=== PATIENT | male | born 1950 | race Caucasian/White ===

== ENCOUNTER 2020-06-26 18:25 | Observation (INO) | payer OTHER, MEDICARE, BC ==
[~2020-06-26] VITALS: Ht 182.9 cm; Wt 90.9 kg
--- NOTE | 2020-06-26 18:55 | NUR ---
Stroke RN on scene [id number]
[2020-06-26] MEDS ORDERED: aspirin 325mg tablet PO ONE (19:00)
[2020-06-26 19:01] LABS: PARTIAL THROMBOPLASTIN TIME 22 SECONDS (22-32)
[2020-06-26 19:04] LABS: ALANINE AMINOTRANSFERASE 49 U/L (12-78); ALBUMIN 4.4 G/DL (3.4-5.0); ALBUMIN/GLOBULIN RATIO 1.4 (1.1-1.5); ALKALINE PHOSPHATASE 161 IU/L (46-116); ANION GAP 9 (8-16); ASPARTATE AMINO TRANSFERASE 29 U/L (10-37); BILIRUBIN,TOTAL 0.5 MG/DL (0.1-1.0); BLOOD UREA NITROGEN 20 MG/DL (7-18); BUN/CREATININE RATIO 15.7 (5.4-32.0); CALCIUM 9.2 MG/DL (8.5-10.1); CHLORIDE 104 MMOL/L (99-107); CREATININE 1.27 MG/DL (0.60-1.10); GLUCOSE 114 MG/DL (70-104); SODIUM 140 MMOL/L (135-145); TOTAL CARBON DIOXIDE 27.5 MMOL/L (24-32); TOTAL PROTEIN 7.5 G/DL (6.4-8.2); eGFR 57 ML/MIN
[2020-06-26 19:05] LABS: POTASSIUM 4.4 MMOL/L (3.5-5.1)
[2020-06-26] MEDS ORDERED: NO HOME MEDS (19:06)
[2020-06-26 19:07] LABS: TROPONIN I < 0.04 NG/ML (0.0-0.05)
[2020-06-26] MEDS ORDERED: ondansetron/PF 4mg/2ml inj IV PRN (19:30)
[2020-06-26] MEDS ORDERED: mag hydrox/Alum hydrox/simeth 30ml oral suspension PO PRN (19:30)
[2020-06-26] MEDS ORDERED: magnesium hydroxide 30ml (MOM) UD suspension PO PRN (19:30)
[2020-06-26] MEDS ORDERED: morphine 2 MG/ML inj. syringe IV PRN ×2 (19:30)
[2020-06-26] MEDS ORDERED: acetaminophen 325mg tablet PO PRN ×2 (19:30)
[2020-06-26] MEDS: dextrose 5%-1/2 normal saline 1,000 ML IV SCH (20:03)
[2020-06-26 20:20] LABS: BASOPHILS % (AUTO) 0.7 % (0-1); EOSINOPHILS # (AUTO) 0.1 X10'3 (0-0.9); EOSINOPHILS % (AUTO) 1.2 % (0-6); HEMATOCRIT 42.4 % (42.0-52.0); HEMOGLOBIN 14.3 g/dl (14.0-17.9); LYMPHOCYTES # (AUTO) 1.1 X10'3 (1.1-4.8); MEAN CORPUSCULAR HEMOGLOBIN 31.2 PG (27.0-31.0); MEAN CORPUSCULAR HGB CONC 33.8 g/dL (33.0-36.5); MEAN CORPUSCULAR VOLUME 92.1 FL (78-98); MEAN PLATELET VOLUME 8.3 FL (7.4-10.4); MONOCYTES # (AUTO) 0.4 X10'3 (0-0.9); MONOCYTES % (AUTO) 6.4 % (2-12); NEUTROPHILS # (AUTO) 4.7 X10'3 (1.8-7.7); NEUTROPHILS % (AUTO) 74.7 % (42-75); PLATELET COUNT 199 X10'3 (140-440); WHITE BLOOD COUNT 6.3 X10'3 (4.5-11.0)
[2020-06-26 22:00] VITALS: BP 155/78
[2020-06-27] MEDS: dextrose 5%-1/2 normal saline 1,000 ML IV SCH ×3 (05:32→22:08)
[2020-06-27 06:00] VITALS: BP 104/60
[2020-06-27 06:02] LABS: BASOPHILS % (AUTO) 0.7 % (0-1); EOSINOPHILS # (AUTO) 0.1 X10'3 (0-0.9); EOSINOPHILS % (AUTO) 1.6 % (0-6); HEMATOCRIT 40.4 % (42.0-52.0); HEMOGLOBIN 13.8 g/dl (14.0-17.9); LYMPHOCYTES # (AUTO) 1.9 X10'3 (1.1-4.8); LYMPHOCYTES % (AUTO) 31.2 % (21-51); MEAN CORPUSCULAR HEMOGLOBIN 31.7 PG (27.0-31.0); MEAN CORPUSCULAR VOLUME 93.1 FL (78-98); MEAN PLATELET VOLUME 7.9 FL (7.4-10.4); MONOCYTES # (AUTO) 0.5 X10'3 (0-0.9); MONOCYTES % (AUTO) 7.9 % (2-12); NEUTROPHILS # (AUTO) 3.5 X10'3 (1.8-7.7); NEUTROPHILS % (AUTO) 58.6 % (42-75); PLATELET COUNT 181 X10'3 (140-440); RED BLOOD COUNT 4.34 X10'6 (4.70-6.10); RED CELL DISTRIBUTION WIDTH 12.8 % (11.5-14.5)
[2020-06-27 06:12] LABS: ALBUMIN 3.3 G/DL (3.4-5.0); ANION GAP 7 (8-16); BLOOD UREA NITROGEN 17 MG/DL (7-18); BUN/CREATININE RATIO 16.5 (5.4-32.0); CALCIUM 8.3 MG/DL (8.5-10.1); CHLORIDE 106 MMOL/L (99-107); CHOL/HDL RATIO 3.7 (0.00-4.99); CHOLESTEROL 163 MG/DL (0-200); CREATININE 1.03 MG/DL (0.60-1.10); GLUCOSE 137 MG/DL (70-104); HDL CHOLESTEROL 44 MG/DL (35-60); LDL CHOLESTEROL 115 MG/DL (50-100); POTASSIUM 3.5 MMOL/L (3.5-5.1); SODIUM 139 MMOL/L (135-145); TOTAL CARBON DIOXIDE 26.4 MMOL/L (24-32); TRIGLYCERIDES 56 MG/DL (20-135); eGFR 72 ML/MIN
--- NOTE | 2020-06-27 06:21 | NUR ---
Problems reprioritized. Patient report given, questions answered & plan of care reviewed with YOSHI Marquez.
[2020-06-27 09:46] VITALS: BP 126/68
[2020-06-27] MEDS ORDERED: potassium Cl 20 mEq SR tablet PO PRN ×2 (10:45)
[2020-06-27] MEDS ORDERED: potassium CL 10mEq/100ml bag 100 ML IV PRN (10:45)
[2020-06-27] MEDS ORDERED: magnesium Cl slow-release 64mg tablet PO PRN (10:45)
[2020-06-27] MEDS ORDERED: magnesium 4gm in 100ml NS 100 ML IV PRN (10:45)
--- NOTE | 2020-06-27 11:16 | NUR ---
PAGER ID: [phone] MESSAGE: [phone] [facility] [place] [phone]
[2020-06-27] MEDS ORDERED: LORazepam 2 mg/ml vial IV ONE (11:25)
--- NOTE | 2020-06-27 11:34 | NUR ---
sent page to [facility] ([facility]) for pt
[2020-06-27 18:00] VITALS: BP 140/73
--- NOTE | 2020-06-27 18:36 | NUR ---
Patient in room ORTHO 4023. I have received report from Alma BELLE and had the opportunity to ask questions and assume patient care.
[2020-06-27] MEDS: atorvastatin 20mg tablet PO SCH (18:49)
[2020-06-27] MEDS: heparin, porcine 5000 units/ml vial SQ SCH (19:04)
[2020-06-27] MEDS: K and/or MAG REPLACEMENT MC SCH (19:04)
[2020-06-27 22:00] VITALS: BP 114/65
[2020-06-28 02:00] VITALS: BP 102/60
[2020-06-28 06:00] VITALS: BP 118/67
--- NOTE | 2020-06-28 06:17 | NUR ---
Problems reprioritized. Patient report given, questions answered & plan of care reviewed with Columba BELLE.
[2020-06-28 06:19] LABS: ALBUMIN 3.2 G/DL (3.4-5.0); ANION GAP 6 (8-16); BLOOD UREA NITROGEN 12 MG/DL (7-18); BUN/CREATININE RATIO 10.7 (5.4-32.0); CALCIUM 8.6 MG/DL (8.5-10.1); CHLORIDE 107 MMOL/L (99-107); CREATININE 1.12 MG/DL (0.60-1.10); GLUCOSE 110 MG/DL (70-104); POTASSIUM 3.9 MMOL/L (3.5-5.1); SODIUM 141 MMOL/L (135-145); TOTAL CARBON DIOXIDE 27.6 MMOL/L (24-32); eGFR 65 ML/MIN
--- NOTE | 2020-06-28 06:31 | NUR ---
Patient in room ORTHO 4023B. I have received report from YOSHI Hall and had the opportunity to ask questions and assume patient care.
[2020-06-28 06:38] LABS: BASOPHILS % (AUTO) 0.7 % (0-1); EOSINOPHILS # (AUTO) 0.2 X10'3 (0-0.9); EOSINOPHILS % (AUTO) 2.9 % (0-6); HEMATOCRIT 41.3 % (42.0-52.0); LYMPHOCYTES # (AUTO) 1.8 X10'3 (1.1-4.8); LYMPHOCYTES % (AUTO) 32.9 % (21-51); MEAN CORPUSCULAR HEMOGLOBIN 31.4 PG (27.0-31.0); MEAN CORPUSCULAR HGB CONC 33.9 g/dL (33.0-36.5); MEAN CORPUSCULAR VOLUME 92.7 FL (78-98); MEAN PLATELET VOLUME 8.1 FL (7.4-10.4); MONOCYTES # (AUTO) 0.4 X10'3 (0-0.9); MONOCYTES % (AUTO) 7.6 % (2-12); NEUTROPHILS # (AUTO) 3.1 X10'3 (1.8-7.7); NEUTROPHILS % (AUTO) 55.9 % (42-75); PLATELET COUNT 176 X10'3 (140-440); RED BLOOD COUNT 4.46 X10'6 (4.70-6.10); RED CELL DISTRIBUTION WIDTH 12.7 % (11.5-14.5); WHITE BLOOD COUNT 5.5 X10'3 (4.5-11.0)
[2020-06-28] MEDS ORDERED: aspirin 81mg tablet.DR PO SCH (08:00)
[2020-06-28] MEDS: K and/or MAG REPLACEMENT MC SCH (08:00)
[2020-06-28] MEDS: dextrose 5%-1/2 normal saline 1,000 ML IV SCH (08:24)
[2020-06-28] MEDS: atorvastatin 20mg tablet PO SCH (08:24)
[2020-06-28] MEDS: heparin, porcine 5000 units/ml vial SQ SCH (08:28)
[2020-06-28 10:00] VITALS: BP 111/63
[2020-06-28 12:00] VITALS: BP 123/75
[2020-06-28] MEDS ORDERED: iohexol 350MG/ML 100ml bottle IV ONE (15:32)
[2020-06-28] MEDS ORDERED: ATOR20TA66 PO (16:29)
[2020-06-28] MEDS ORDERED: ASPI-1071 PO (16:29)
--- NOTE | 2020-06-28 17:04 | NUR ---
Page Sent PAGER ID: [phone] MESSAGE: KEVIN [phone]-RE: [id number] ANTHONY AUSTIN...ARE YOU GOING TO COME TALK TO PT ABOUT HEAD/NECK CTA BEFORE I DC HIM?
--- NOTE | 2020-06-28 17:35 | NUR ---
DC INSTRUCTIONS GIVEN TO PT, IV REMOVED CANULA INTACT, NO COMPLICATIONS, TELE REMOVED, PT DRESSED SELF. WHEELED TO PRIVATE VEHICLE IN STABLE CONDITION
== END 2020-06-28 17:35 | disposition home or self-care (01) ==
LOC: ER 18:25 → ED HOLD 19:27 → ORTHO 4S 21:45
PROVIDERS: ADMIT Internal Medicine; ATTEND Family Medicine
DX: G45.4 Transient global amnesia (principal); R41.82 Altered mental status, unspecified; E86.0 Dehydration; N17.9 Acute kidney failure, unspecified
CPT/HCPCS: 36415; 70450; 70496; 70498; 70544; 70551; 71045; 80048; 80053; 80061; 82140; 82948; 83735; 83880; 84100; 84443; 84484; 85025; 85610; 85730; 87081; 93005; 93306; 93880; 95816; 96361; 96372; 96374; 99285; G0378; J1644; J2060; Q9967

== ENCOUNTER 2022-01-29 09:05 | Emergency (ER) | payer MEDICARE, BC ==
[~2022-01-29] VITALS: Ht 175.3 cm; Wt 90.0 kg
[~2022-01-29 09:05] MED LIST: ASPI-1071 PO; ATOR20TA66 PO
[2022-01-29] MEDS ORDERED: aspirin 81mg tab.chew PO ONE (09:15)
[2022-01-29] MEDS ORDERED: aspirin 325mg tablet PO ONE (09:25)
[2022-01-29 10:20] LABS: BASOPHILS % (AUTO) 0.3 % (0-1); EOSINOPHILS # (AUTO) 0.1 X10'3 (0-0.9); HEMATOCRIT 43.4 % (42.0-52.0); HEMOGLOBIN 14.9 g/dl (14.0-17.9); LYMPHOCYTES % (AUTO) 11.3 % (21-51); MEAN CORPUSCULAR HEMOGLOBIN 31.3 PG (27.0-31.0); MEAN CORPUSCULAR HGB CONC 34.3 g/dL (33.0-36.5); MEAN CORPUSCULAR VOLUME 91.2 FL (78-98); MEAN PLATELET VOLUME 7.9 FL (7.4-10.4); MONOCYTES # (AUTO) 0.6 X10'3 (0-0.9); MONOCYTES % (AUTO) 6.8 % (2-12); NEUTROPHILS % (AUTO) 80.6 % (42-75); PLATELET COUNT 193 X10'3 (140-440); RED BLOOD COUNT 4.76 X10'6 (4.70-6.10); RED CELL DISTRIBUTION WIDTH 12.9 % (11.5-14.5); WHITE BLOOD COUNT 8.7 X10'3 (4.5-11.0)
[2022-01-29 10:28] LABS: ALANINE AMINOTRANSFERASE 34 U/L (12-78); ALBUMIN 3.7 G/DL (3.4-5.0); ALBUMIN/GLOBULIN RATIO 1.2 (1.1-1.5); ALKALINE PHOSPHATASE 121 IU/L (46-116); ANION GAP 10 (8-16); ASPARTATE AMINO TRANSFERASE 18 U/L (10-37); BILIRUBIN,TOTAL 0.7 MG/DL (0.1-1.0); BLOOD UREA NITROGEN 16 MG/DL (7-18); BUN/CREATININE RATIO 16.3 (5.4-32.0); CHLORIDE 102 MMOL/L (99-107); CREATININE 0.98 MG/DL (0.60-1.10); GLUCOSE 105 MG/DL (70-104); POTASSIUM 4.1 MMOL/L (3.5-5.1); SODIUM 137 MMOL/L (135-145); TOTAL CARBON DIOXIDE 25.5 MMOL/L (24-32); TOTAL PROTEIN 6.8 G/DL (6.4-8.2); eGFR 76 ML/MIN
[2022-01-29 10:30] VITALS: BP 132/78
== END 2022-01-29 11:07 | disposition home or self-care (01) ==
LOC: ER 09:06
DX: R07.81 Pleurodynia (principal); F17.200 Nicotine dependence, unspecified, uncomplicated; Z72.89 Other problems related to lifestyle; Z79.82 Long term (current) use of aspirin; Z79.899 Other long term (current) drug therapy
CPT/HCPCS: 36415; 71045; 80053; 83880; 84484; 85025; 93005; 99285

== ENCOUNTER 2022-02-11 09:02 | Emergency (ER) | payer MEDICARE, BC ==
[~2022-02-11] VITALS: Ht 180.3 cm; Wt 105.9 kg
[2022-02-11 09:38] LABS: BASOPHILS # (AUTO) 0.2 X10'3 (0-0.2); BASOPHILS % (AUTO) 1.3 % (0-1); EOSINOPHILS # (AUTO) 0.1 X10'3 (0-0.9); EOSINOPHILS % (AUTO) 0.5 % (0-6); HEMOGLOBIN 14.5 g/dl (14.0-17.9); LYMPHOCYTES # (AUTO) 1.1 X10'3 (1.1-4.8); LYMPHOCYTES % (AUTO) 8.8 % (21-51); MEAN CORPUSCULAR HEMOGLOBIN 30.6 PG (27.0-31.0); MEAN CORPUSCULAR HGB CONC 33.7 g/dL (33.0-36.5); MEAN CORPUSCULAR VOLUME 90.8 FL (78-98); MEAN PLATELET VOLUME 7.2 FL (7.4-10.4); MONOCYTES # (AUTO) 0.7 X10'3 (0-0.9); MONOCYTES % (AUTO) 5.7 % (2-12); NEUTROPHILS # (AUTO) 10.3 X10'3 (1.8-7.7); NEUTROPHILS % (AUTO) 83.7 % (42-75); PLATELET COUNT 234 X10'3 (140-440); RED BLOOD COUNT 4.74 X10'6 (4.70-6.10); RED CELL DISTRIBUTION WIDTH 12.9 % (11.5-14.5); WHITE BLOOD COUNT 12.3 X10'3 (4.5-11.0)
[2022-02-11 09:54] LABS: ALANINE AMINOTRANSFERASE 31 U/L (12-78); ALBUMIN 3.6 G/DL (3.4-5.0); ALBUMIN/GLOBULIN RATIO 0.9 (1.1-1.5); ALKALINE PHOSPHATASE 133 IU/L (46-116); ANION GAP 9 (8-16); ASPARTATE AMINO TRANSFERASE 15 U/L (10-37); BILIRUBIN,TOTAL 0.9 MG/DL (0.1-1.0); BLOOD UREA NITROGEN 15 MG/DL (7-18); BUN/CREATININE RATIO 12.3 (5.4-32.0); CALCIUM 8.4 MG/DL (8.5-10.1); CHLORIDE 102 MMOL/L (99-107); CREATININE 1.22 MG/DL (0.60-1.10); GLUCOSE 129 MG/DL (70-104); LIPASE 65 U/L (73-393); POTASSIUM 3.7 MMOL/L (3.5-5.1); SODIUM 138 MMOL/L (135-145); TOTAL CARBON DIOXIDE 26.8 MMOL/L (24-32); TOTAL PROTEIN 7.5 G/DL (6.4-8.2); eGFR 59 ML/MIN
[2022-02-11] MEDS ORDERED: normal saline 1000ML IV soln IVB ONE (10:15)
[2022-02-11] MEDS ORDERED: iohexol 300mg/ml 100ml inj. ONE (10:28)
[2022-02-11 10:29] LABS: CLARITY,URINE CLEAR (Clear); COLOR,URINE YELLOW (Yellow); GLUCOSE, URINE NEGATIVE (Neg); KETONES,URINE NEGATIVE (Neg); LEUKOCYTE ESTERASE ,URINE NEGATIVE (Neg); NITRITES, URINE NEGATIVE (Neg); OCCULT BLOOD,URINE MODERATE (Neg); PROTEIN,URINE NEGATIVE (Neg); UROBILINOGEN,URINE 0.2 E.U/dL (0.2-1.0)
[2022-02-11 10:35] LABS: UA COLLECTION TYPE CLN CATCH MIDSTREAM
[2022-02-11 10:36] LABS: BACTERIA,URINE NONE SEEN /HPF (Neg); MUCUS STRANDS FEW /LPF (Neg); SQUAMOUS EPITHELIAL CELL,UR NONE SEEN /LPF (FEW); WBC,URINE 0-4 /HPF (0-4)
[2022-02-11] MEDS ORDERED: AMOX-117 PO (11:11)
[2022-02-11 11:43] VITALS: BP 128/70
== END 2022-02-11 11:44 | disposition home or self-care (01) ==
LOC: ER 09:02
DX: K57.92 Diverticulitis of intestine, part unspecified, without perforation or abscess without bleeding (principal); Z88.8 Allergy status to other drugs, medicaments and biological substances
CPT/HCPCS: 36415; 74177; 80053; 81001; 83690; 84484; 85025; 93005; 96360; 99285; J7030; Q9967

== ENCOUNTER 2022-03-15 08:14 | Day surgery (SDC) | payer MEDICARE, BC ==
[~2022-03-15] VITALS: Ht 180.3 cm; Wt 104.5 kg
[2022-03-15] MEDS ORDERED: fentaNYL/PF 50MCG/1 ML 2ML syringe ONE (08:25)
[2022-03-15] MEDS ORDERED: MIDAZolam 1 MG/ML 5ML VIAL ONE (08:26)
[2022-03-15 08:27] VITALS: BP 145/86
[2022-03-15] MEDS ORDERED: UBIQ100C2 PO (08:32)
[2022-03-15] MEDS ORDERED: LUTE20CA PO (08:32)
[2022-03-15] MEDS ORDERED: ZEAX100P (08:32)
[2022-03-15] MEDS ORDERED: VIT D3 (08:32)
[2022-03-15 09:04] VITALS: BP 129/79
[2022-03-15 09:14] VITALS: BP 126/76
[2022-03-15 09:24] VITALS: BP 131/84
[2022-03-15 09:34] VITALS: BP 119/74
== END 2022-03-15 09:40 | disposition home or self-care (01) ==
LOC: GI LAB 08:14
PROVIDERS: ATTEND Internal Medicine Gastroenterology
DX: R10.32 Left lower quadrant pain (principal); D12.4 Benign neoplasm of descending colon; K57.30 Diverticulosis of large intestine without perforation or abscess without bleeding; Z87.19 Personal history of other diseases of the digestive system
CPT/HCPCS: 45385; 88305; C1773; G0500; J2250; J3010; J7030; Z7512; 45380; 99152; 99153; A4620

== ENCOUNTER 2023-02-02 08:03 | Emergency (ER) | payer MEDICARE, BC ==
[~2023-02-02] VITALS: Ht 177.8 cm; Wt 106.0 kg
[~2023-02-02 08:03] MED LIST changes: -ASPI-1071 PO; -ATOR20TA66 PO; +LUTE20CA PO; +UBIQ100C2 PO; +VIT D3; +ZEAX100P
--- NOTE | 2023-02-02 08:44 | NUR ---
Patient received in bed awake, spouse at bedside,call light within reach.
[2023-02-02 09:06] LABS: CLARITY,URINE CLEAR (Clear); COLOR,URINE STRAW (Yellow); GLUCOSE, URINE NEGATIVE (Neg); KETONES,URINE NEGATIVE (Neg); LEUKOCYTE ESTERASE ,URINE NEGATIVE (Neg); NITRITES, URINE NEGATIVE (Neg); OCCULT BLOOD,URINE SMALL (Neg); PROTEIN,URINE NEGATIVE (Neg); UROBILINOGEN,URINE 0.2 E.U/dL (0.2-1.0)
[2023-02-02 09:12] LABS: UA COLLECTION TYPE CLN CATCH MIDSTREAM
[2023-02-02 09:23] LABS: BACTERIA,URINE NONE SEEN /HPF (Neg); MUCUS STRANDS NONE SEEN /LPF (Neg); RBC,URINE 0-2 /HPF (0-2); SQUAMOUS EPITHELIAL CELL,UR NONE SEEN /LPF (FEW); WBC,URINE NONE SEEN /HPF (0-4)
[2023-02-02] MEDS ORDERED: HYDROcodone/acetaminophen 5mg/325mg tablet PO ONE (09:45)
[2023-02-02] MEDS ORDERED: HYDR-3973 PO (10:14)
[2023-02-02 11:10] VITALS: BP 132/81
== END 2023-02-02 11:29 | disposition home or self-care (01) ==
LOC: ER 08:03
DX: M54.59 Other low back pain (principal); Z79.899 Other long term (current) drug therapy
CPT/HCPCS: 76770; 81001; 99284